=== PATIENT | female | born 1950 | race African-American/Black ===

== ENCOUNTER 2023-10-22 12:52 | Outpatient (CLI) | payer MEDICARE, MEDICAID, SELFPAY | END 2023-10-22 12:53 | disposition home or self-care (01) | LOC: ANHAUDASC 12:54 | PROVIDERS: Visit Provider Otolaryngology | DX: H93.13 Tinnitus, bilateral (principal); H90.3 Sensorineural hearing loss, bilateral | CPT/HCPCS: 92557; 92567 ==